=== PATIENT | male | born 1990 | race Caucasian/White ===

== ENCOUNTER 2018-02-16 12:21 | Emergency (ER) | payer OTHER ==
--- NOTE | 2018-02-16 13:10 | EDPHY ---
H & P Time Seen by Provider: 02/16/18 12:56 HPI/ROS: Chief complaint. Chest pain, abdominal pain HPI. Patient is a 27-year-old male with multiple complaints. He has been having chest pain and abdominal pain for at least 6 months. For the last 2 weeks he has had chills and felt that he had a fever to 99.5 yesterday. He feels his abdomen has been bloated for 1 week. He has sharp pains in the left upper quadrant and also in the right side of his abdomen and worse with lying on his right side. He has both sides chest pain that he describes as sharp and pressure. They last seconds. Maybe worse with deep breathing. When he drinks alcohol he has pain to both sides of his neck and both sides of his chest. He has had been advised previously not to drink alcohol because of this but is trying to experimented and see if it continues to precipitate symptoms which apparently it does. His chest pain is not worse with exertion. He has episodes of bone pain in right and left forearm that last few hours and then goes away. He has nausea but no vomiting or diarrhea. Denies constipation or urinary symptoms. 1 year ago in [facility] he had chest pain went to the hospital and his troponin was elevated. He had normal ultrasound angiogram. He had an heart MRI May 20 that was normal. He has a brother that had myocarditis. He tells me that he had a chest x-ray 2 days ago. He tells me the results were normal ROS 10 systems were reviewed and negative with the exception of the elements mentioned in the history of present illness Past Medical/Surgical History: Some type of cardiac event in 2017 that was possibly myocarditis Social History: Single, nonsmoker, no alcohol Smoking Status: Never smoked Physical Exam: General Appearance: Alert well-developed male anxious, mild distress. Vital signs are stable Eyes: Pupils equal and round no pallor or injection. ENT, Mouth: Mucous membranes are moist. Respiratory: There are no retractions, lungs are clear to auscultation. Cardiovascular: Regular rate and rhythm. Gastrointestinal: Abdomen is soft and nontender, no masses, bowel sounds normal. Neurological: Awake and alert, sensory and motor exams grossly normal. Skin: Warm and dry, no rashes. Musculoskeletal: Neck is supple nontender. Extremities symmetrical, full range of motion. Psychiatric: Patient is oriented X 3, there is no agitation. Constitutional: Initial Vital Signs Temperature (C) 36.7 C 02/16/18 12:28 Heart Rate 66 02/16/18 12:28 Respiratory Rate 18 02/16/18 12:28 Blood Pressure 142/97 H 02/16/18 12:28 O2 Sat (%) 100 02/16/18 12:28 O2 Delivery Mode Room Air Allergies/Adverse Reactions: No Known Allergies Allergy (Unverified 02/16/18 12:27) Home Medications: Medication Instructions Recorded Buspar (*) 02/16/18 Medical Decision Making - Diagnostics EKG Interpretation: EKG interpreted by me shows normal sinus rhythm normal interval and axis. QRS is normal there is no significant ST elevation or depression. There is no arrhythmia. The rate is 62 Procedures: IV normal saline, monitor ED Course/Re-evaluation: Re-evaluation at 2:45 p.m.. Patient is stable. The patient and I discussed EKG and laboratory evaluation. The patient keeps telling me that is not normal to have both sides chest pain and neck pain when he drinks alcohol. It is not normal to have bone pain. We discussed laboratory evaluation and I do not think there is any indication for emergent further imaging today of CT of chest or abdomen. I have encouraged him to follow up with his regular physician. Differential Diagnosis: Patient has recurring chronic symptoms. Today his vital signs are normal. His evaluation is normal with the exception of mild elevation of ALT. I considered pulmonary embolus as well as acute coronary syndrome. Considered pancreatitis as infection, inflammation. The workup is normal. I think he can be safely treated as an outpatient. - Data Points Laboratory Results: Laboratory Results 02/16/18 13:39 02/16/18 13:39 02/16/18 02/16/18 02/16/18 14:40 13:48 13:39 WBC RBC Hgb Hct MCV MCH MCHC RDW Plt Count MPV Neut % (Auto) Lymph % (Auto) Dukes % (Auto) Eos % (Auto) Baso % (Auto) Nucleat RBC Rel Count Absolute Neuts (auto) Absolute Lymphs (auto) Absolute Monos (auto) Absolute Eos (auto) Absolute Basos (auto) Absolute Nucleated RBC Immature Gran % Immature Gran # ESR D-Dimer < 0.27 ug/mLFEU ug/mLFEU (0.00-0.50) Sodium Potassium Chloride Carbon Dioxide Anion Gap BUN Creatinine Estimated GFR Glucose Calcium Total Bilirubin Conjugated Bilirubin Unconjugated Bilirubin AST ALT Alkaline Phosphatase POC Troponin I 0.01 ng/mL ng/mL (0.00-0.08) Total Protein Albumin Lipase Urine Color Pending Urine Appearance Pending Urine pH Pending Ur Specific Bloomery Pending Urine Protein Pending Urine Ketones Pending Urine Blood Pending Urine Nitrate Pending Urine Bilirubin Pending Urine Urobilinogen Pending Ur Leukocyte Esterase Pending Urine RBC Pending Urine WBC Pending Ur Epithelial Cells Pending Urine Glucose Pending 02/16/18 02/16/18 13:39 13:39 WBC 5.41 10^3/uL 10^3/uL (3.80-9.50) RBC 5.39 10^6/uL 10^6/uL (4.40-6.38) Hgb 17.3 g/dL g/dL (13.7-17.5) Hct 48.2 % % (40.0-51.0) MCV 89.4 fL fL (81.5-99.8) MCH 32.1 pg pg (27.9-34.1) MCHC 35.9 g/dL g/dL (32.4-36.7) RDW 12.3 % % (11.5-15.2) Plt Count 195 10^3/uL 10^3/uL (150-400) MPV 11.0 fL fL (8.7-11.7) Neut % (Auto) 62.2 % % (39.3-74.2) Lymph % (Auto) 25.1 % % (15.0-45.0) Dukes % (Auto) 9.2 % % (4.5-13.0) Eos % (Auto) 2.4 % % (0.6-7.6) Baso % (Auto) 0.9 % % (0.3-1.7) Nucleat RBC Rel Count 0.0 % % (0.0-0.2) Absolute Neuts (auto) 3.36 10^3/uL 10^3/uL (1.70-6.50) Absolute Lymphs (auto) 1.36 10^3/uL 10^3/uL (1.00-3.00) Absolute Monos (auto) 0.50 10^3/uL 10^3/uL (0.30-0.80) Absolute Eos (auto) 0.13 10^3/uL 10^3/uL (0.03-0.40) Absolute Basos (auto) 0.05 10^3/uL 10^3/uL (0.02-0.10) Absolute Nucleated RBC 0.00 10^3/uL 10^3/uL (0-0.01) Immature Gran % 0.2 % % (0.0-1.1) Immature Gran # 0.01 10^3/uL 10^3/uL (0.00-0.10) ESR 2 MM/HR MM/HR (0-15) D-Dimer Sodium 140 mEq/L mEq/L (135-145) Potassium 4.1 mEq/L mEq/L (3.3-5.0) Chloride 100 mEq/L mEq/L (97-110) Carbon Dioxide 26 mEq/l mEq/l (22-31) Anion Gap 14 mEq/L mEq/L (8-16) BUN 18 mg/dL mg/dL (7-23) Creatinine 1.0 mg/dL mg/dL (0.7-1.3) Estimated GFR > 60 Glucose 94 mg/dL mg/dL (70-100) Calcium 10.2 mg/dL mg/dL (8.5-10.4) Total Bilirubin 1.0 mg/dL mg/dL (0.1-1.4) Conjugated Bilirubin 0.2 mg/dL mg/dL (0.0-0.5) Unconjugated Bilirubin 0.8 mg/dL mg/dL (0.0-1.1) AST 47 IU/L IU/L (17-59) ALT 88 IU/L H IU/L (21-72) Alkaline Phosphatase 34 IU/L L IU/L (38-126) POC Troponin I Total Protein 8.6 g/dL H g/dL (6.3-8.2) Albumin 4.9 g/dL g/dL (3.5-5.0) Lipase 233 IU/L IU/L (23-300) Urine Color Urine Appearance Urine pH Ur Specific Bloomery Urine Protein Urine Ketones Urine Blood Urine Nitrate Urine Bilirubin Urine Urobilinogen Ur Leukocyte Esterase Urine RBC Urine WBC Ur Epithelial Cells Urine Glucose Medications Given: Discontinued Medications Sodium Chloride (Ns) 1,000 mls @ 0 mls/hr IV EDNOW ONE; Wide Open PRN Reason: Protocol Stop: 02/16/18 13:28 Last Admin: 02/16/18 13:43 Dose: 1,000 mls Point of Care Test Results: Chemistry 02/16/18 13:48 POC Troponin I 0.01 ng/mL ng/mL (0.00-0.08) Departure - Departure Disposition: Home, Routine, Self-Care Clinical Impression: Chest pain Qualifiers: Chest pain type: unspecified Qualified Code(s): R07.9 - Chest pain, unspecified Abdominal pain Qualifiers: Abdominal location: generalized Qualified Code(s): R10.84 - Generalized abdominal pain Condition: Good Instructions: Chest Pain (ED), Abdominal Pain (ED) Additional Instructions: Please follow-up with Dr. Craft this week for further evaluation. I recommend that you abstain from alcohol as that seems to be causing some symptoms. Return for worsening symptoms. Referrals: Armaan Craft, DO [Primary Care Provider] - 2-3 days without fail
[2018-02-16] MEDS ORDERED: NS 1,000 ML IV ONE (13:27)
[2018-02-16 13:48] LABS: PLATELET COUNT 195 10^3/uL (150-400)
[2018-02-16 14:24] VITALS: BP 123/86
--- NOTE | 2018-02-16 15:52 | CPEKG ---
Test Reason : OPEN Blood Pressure : / mmHG Vent. Rate : 062 BPM Atrial Rate : 061 BPM P-R Int : 193 ms QRS Dur : 095 ms QT Int : 402 ms P-R-T Axes : 025 032 025 degrees QTc Int : 409 ms Sinus rhythm Confirmed by Patrice Sagastume ([id number]) on 02/16/2018 3:51:37 PM Referred By: Confirmed By:Patrice Sagastume
== END 2018-02-16 15:01 | disposition home or self-care (01) ==
DX: R07.9 Chest pain, unspecified (principal); R10.84 Generalized abdominal pain
CPT/HCPCS: 84484-PO

== ENCOUNTER → 2018-03-15 | Outpatient (CLI) | payer OTHER | LOC: FIMAGING 14:17 | PROVIDERS: ATTEND Family Medicine | DX: R07.9 Chest pain, unspecified (principal); M51.44 Schmorl's nodes, thoracic region ==